=== PATIENT | male | born 1995 | race Caucasian/White ===

== ENCOUNTER → 2019-01-23 | Outpatient (CLI) | payer OTHER ==
--- NOTE | 2019-01-23 15:34 | RADIOLOGY IMAGING REPORT ---
FACILITY: [facility] PATIENT NAME: Jose Levy : 1995 MR: [id number] V: [id number] EXAM DATE: ORDERING PHYSICIAN: LOYDA CUI TECHNOLOGIST: Location: [facility] Patient: Jose Levy : 1995 Visit/Account:[id number] Date of Sevice: 01/23/2019 Exam type: CHEST PA LAT History: Positive PPD Comparison: None. Findings: Two views of the chest demonstrate no evidence of pulmonary infiltrates pleural effusions or pulmonar y edema. No cavitary lesions are seen. The cardiac silhouette is normal in size. Visualized bones are unremarkable for age IMPRESSION: 1. No acute cardiopulmonary process is seen. Specifically no chest radiographic evidence of active tuberculosis Report Dictated By: Sis Downey MD at 01/23/2019 3:28 PM Report E-Signed By: Sis Downey MD at 01/23/2019 3:29 PM WSN:[email or web address]
== END ==
LOC: RAD 13:39
PROVIDERS: ATTEND Nurse Practitioner Family
DX: R76.11 Nonspecific reaction to tuberculin skin test without active tuberculosis (principal)
CPT/HCPCS: 71046